=== PATIENT | female | born 1990 | race Caucasian/White ===

== ENCOUNTER 2024-10-05 18:13 | Emergency (ER) | payer BC, SELFPAY ==
--- NOTE | ~2024-10-05 | CT_ITS ---
CT abdomen pelvis w con Ordering provider: Irene Deleon PA-C History: 34 years Female with . RLQ abd pain, N/V, fevers . Comparison: None. Technique: CT abdomen and pelvis with IV and without oral contrast. Automated exposure control and it erative reconstruction technique were employed. The dose-length product was 1194.62 mGy-cm. 100 mL Om nipaque 350 was given IV. Findings: VISUALIZED LOWER CHEST: Dependent atelectatic changes. UPPER ABDOMINAL ORGANS: Liver: Hepatomegaly. Measuring 23 cm. Gallbladder: Normal. Spleen: Normal. Stomach/duodenum: Normal. Pancreas: Normal. Adrenals: Normal. Kidneys: Normal. Cyst in the right kidney upper pole. PELVIC ORGANS: The bladder is normal. BOWEL AND MESENTERY: Colon: No evidence of diverticulitis. Fecal material is loaded in the colon. Appendix is not demonstr ated. Small Bowel: Normal. No obstruction. Peritoneum/mesentery: No free air or free fluid. No mesenteric lymphadenopathy. RETROPERITONEUM: Normal aorta. No retroperitoneal lymphadenopathy. MUSCULOSKELETAL: Superficial soft tissues: Fat containing moderate size umbilical hernia. The superficial soft tissues are normal. Bones: Normal spine. IMPRESSION: No evidence of appendicitis, diverticulitis or intestinal obstruction. Constipation. Fat-containing umbilical hernia. Hepatomegaly. Reviewed, dictated and finalized at location A. [employer]
[2024-10-05 18:25] VITALS: BP 133/80; PULSE 109; RESP 20; TEMP 37.3; O2SAT 100
[2024-10-05 18:44] LABS: BEDSIDEPREGUCG Negative (Negative)
[2024-10-05 18:50] LABS: Basophils Percent Auto 0.5 % (0.2-1.2); Eosinophils Absolute Auto 0.1 K/mm3 (0-0.3); Eosinophils Percent Auto 0.8 % (0-4.4); Hematocrit 39.9 % (37.0-47.0); Hemoglobin 12.5 g/dL (12.0-15.0); Immature Granulocyte Absolute 0.03 K/mm3 (0.00-0.031); Immature Granulocyte Percent A 0.4 % (0-0.5); Lymphocytes Absolute Auto 1.35 K/mm3 (0.9-3.2); Lymphocytes Percent Auto 15.8 % (18.3-44.2); Mean Corpuscular HGB Conc 31.3 g/dl (32-36); Mean Corpuscular Hemoglobin 22.8 pg (26-34); Mean Corpuscular Volume 72.8 fl (80-100); Mean Platelet Volume 9.5 fl (7.4-10.4); Monocytes Absolute Auto 0.2 K/mm3 (0.1-0.6); Monocytes Percent Auto 1.8 % (2.6-8.5); Neutrophils Absolute Auto 6.9 K/mm3 (1.3-6.7); Neutrophils Percent Auto 80.7 % (45.5-73.1); Platelet Count Result 223 k/mm3 (150-375); Red Blood Count 5.48 M/mm3 (4.2-5.4); Red Cell Distribution Width 14.7 % (11.5-14.5); White Blood Count 8.5 K/mm3 (4.5-10.0)
[2024-10-05 18:52] LABS: Add Urine Microscopic? YES; Appearance Urine Cloudy (Clear); Bacteria Urine 4+ /hpf; Bilirubin Urine Negative (Negative); Blood Urine 1+ (Negative); Color Urine Yellow (Yellow); Glucose Urine UA Negative (Negative); Ketones Urine Negative (Negative); Leukocyte Esterase Ur 2+ LEU/UL (Negative); Nitrate Urine Positive (Negative); Non Pathogenic Casts 0-2; Protein Urine 1+ mg/dL (Negative); Specific Grav Ur 1.017 (1.001-1.035); Squamous Epithelial Cell Urine Few /hpf (Few); WBC Urine 51-100 /hpf (0-3)
[2024-10-05 19:01] LABS: Alanine Aminotransferase 68 U/L (6-35); Albumin Level 4.6 g/dL (3.5-5.1); Alkaline Phosphatase 97 U/L (38-126); Anion Gap 8 mmol/L (4-12); Aspartate Amino Transferase 41 U/L (14-36); Blood Urea Nitrogen 9 mg/dL (7-17); Calcium 9.2 mg/dL (8.4-10.2); Carbon Dioxide 27 mmol/L (22-30); Chloride 101 mmol/L (98-107); Estimated CRCL calculation 123 ml/min; Estimated Glomerular Filt Rate > 60; Glucose 109 mg/dL (65-110); Lipase 81 U/L (23-300); Sodium 136 mmol/L (137-145)
--- NOTE | 2024-10-05 19:01 | ED_ITS ---
HPI - Abdominal Pain General Chief Complaint: Abdominal Pain Stated Complaint: Chills, RQ abdominal pain Time Seen by Provider: 10/05/24 18:28 Source: patient Mode of arrival: ambulatory Limitations: no limitations History of Present Illness HPI narrative: Patient is a 34 y/o female who presents to the ED with c/o R sided abd pain. Patient reports she began feeling ill on Tuesday night with chills, diaphoresis. She was seen at [facility], had negative viral swabs and was discharged home. Patient reports that night she began having pain throughout her right- sided abdomen, right lower abdomen, periumbilical region. Symptoms have since persisted. She has been taking Tylenol and ibuprofen for pain around the clock without improvement. Reports nausea, denies vomiting. Denies diarrhea, constipation. Denies urinary complaints. Has never had pain like this before. Denies family members with similar symptoms. Related Data Allergies Allergy/AdvReac Type Severity Reaction Status Date / Time No Known Allergies Allergy Verified 10/05/24 18:14 Review of Systems Review of Systems: All systems reviewed & are unremarkable except as noted in HPI. All systems reviewed & are unremarkable except as noted in HPI and below Exam Narrative: GENERAL: Mildly ill appearing, obese with BMI of 35.9, non-toxic, in mild acute distress. HEAD: Normocephalic, atraumatic. RESPIRATORY: Airway patent, respirations nonlabored. Clear to auscultation bilaterally, no rales, rhonchi, wheezing. CARDIOVASCULAR: Tachycardic with regular rhythm without murmurs, rubs, or gallops. ABDOMINAL: Soft, tenderness to palpation throughout right mid to lower abdomen, periumbilical region. Nondistended. Normoactive BS. MUSCULOSKELETAL: Moves all extremities. No gross deformities. SKIN: Warm, dry, normal color. NEURO: A&O X3. Speech clear. Cranial nerves II-XII grossly intact. No ataxic movements. PSYCHIATRIC: Appropriate mood and affect. Normal interaction. Course Vital Signs Vital signs: Vital Signs Temperature 99.2 F 10/05/24 18:25 Pulse Rate 109 H 10/05/24 18:25 Respiratory Rate 20 10/05/24 18:25 Blood Pressure 133/80 10/05/24 18:25 Pulse Oximetry 100 10/05/24 18:25 Oxygen Delivery Room Air 10/05/24 18:25 Temperature 99.2 F 10/05/24 18:25 Pulse Rate 92 10/05/24 21:33 Respiratory Rate 16 10/05/24 21:33 Blood Pressure 104/66 10/05/24 21:33 Pulse Oximetry 98 10/05/24 21:33 Oxygen Delivery Room Air 10/05/24 18:25 MDM - Abdominal Pain MDM Narrative Medical decision making narrative: Patient presents to ED with 2-3 days of right-sided abdominal pain, chills, nausea. Patient tachycardic and borderline febrile upon arrival. Mildly uncomfortable appearing, but in NAD. CBC without leukocytosis or anemia. CMP is unremarkable. Minimal transaminitis noted. Normal bilirubin. Normal lipase. UA consistent with infection. Sent for culture. Given dose of Rocephin in the ED. Will treat as this is is likely contributing to lower abdominal pain. Viral swabs negative. CT scan of abdomen/pelvis showing constipation, no evidence of appendicitis or diverticulitis. No other significant abnormalities. Patient updated on lab and imaging results. She is feeling improved with supportive therapy. Feel she is safe for d/c home with close outpatient follow up. Will discharge on Keflex for UTI, zofran, bentyl. Also discussed additional constipation management at home. Recommended close f/u with PCP for further evaluation. Given strict return precautions. Patient agrees w/ plan. D/C in stable condition. VSS at time of d/c. Medical Records Attestation: I reviewed the patient's medical records. Lab Data Attestation: I reviewed the patient's lab results. 10/05/24 18:40 10/05/24 18:40 Labs: Lab Results 10/05/24 10/05/24 10/05/24 Range/Units 18:40 18:42 19:45 WBC 8.5 (4.5-10.0) K/mm3 RBC 5.48 H (4.2-5.4) M/mm3 Hgb 12.5 (12.0-15.0) g/dL Hct 39.9 (37.0-47.0) % MCV 72.8 L (80-100) fl MCH 22.8 L (26-34) pg MCHC 31.3 L (32-36) g/dl RDW 14.7 H (11.5-14.5) % Plt Count 223 (150-375) k/mm3 MPV 9.5 (7.4-10.4) fl Immature Gran % (Auto) 0.4 (0-0.5) % Neut % (Auto) 80.7 H (45.5-73.1) % Lymph % (Auto) 15.8 L (18.3-44.2) % [place] % (Auto) 1.8 L (2.6-8.5) % Eos % (Auto) 0.8 (0-4.4) % Baso % (Auto) 0.5 (0.2-1.2) % Lymph # (Auto) 1.35 (0.9-3.2) K/mm3 [place] # (Auto) 0.2 (0.1-0.6) K/mm3 Eos # (Auto) 0.1 (0-0.3) K/mm3 Baso # (Auto) 0.0 (0.0-0.1) K/mm3 Abs Immat Gran (auto) 0.03 (0.00-0.031) K/mm3 Absolute Neuts (auto) 6.9 H (1.3-6.7) K/mm3 Absolute Nucleated RBC 0.000 (0.0-0.012) K/mm3 Nucleated RBC % 0.0 (0.0-0.2) % Platelet Estimate Adequate (Adequate) Anisocytosis 1+ Ovalocytes 1+ Schistocytes None seen Sodium 136 L (137-145) mmol/L Potassium 4.0 (3.4-5.0) mmol/L Chloride 101 (98-107) mmol/L Carbon Dioxide 27 (22-30) mmol/L Anion Gap 8 (4-12) mmol/L BUN 9 (7-17) mg/dL Creatinine 0.70 (0.7-1.0) mg/dL Estim Creat Clear Calc 123 ml/min Estimated GFR > 60 (59 - ) Glucose 109 (65-110) mg/dL Lactic Acid 1.2 (0.7-2.0) mmol/L Calcium 9.2 (8.4-10.2) mg/dL Total Bilirubin 1.0 (0.2-1.3) mg/dL AST 41 H (14-36) U/L ALT 68 H (6-35) U/L Alkaline Phosphatase 97 (38-126) U/L Total Protein 9.0 H (6.3-8.2) g/dL Albumin 4.6 (3.5-5.1) g/dL Lipase 81 (23-300) U/L Urine Color Yellow (Yellow) Urine Appearance Cloudy H (Clear) Urine pH 6.0 (5.0-9.0) Ur Specific [place] 1.017 (1.001-1.035) Urine Protein 1+ H (Negative) mg/dL Urine Glucose (UA) Negative (Negative) mg/dL Urine Ketones Negative (Negative) mg/dL Ur Blood (Man) 1+ H (Negative) Urine Nitrate Positive H (Negative) Urine Bilirubin Negative (Negative) Urine Urobilinogen 1.0 (<2.0) mg/dL Leukocyte Esterase Rfl 2+ H (Negative) MATIAS/UL Urine RBC 11-20 H (0-2) /hpf Urine WBC 51-100 H (0-3) /hpf Ur Squamous Epith Cells Few (Few) /hpf Urine Bacteria 4+ H /hpf Urine Casts 0-2 POC Urine HCG, Qual Negative (Negative) Influenza A (RT-PCR) Negative (Negative) Influenza B (RT-PCR) Negative (Negative) RSV (RT-PCR) Negative (Negative) SARS-CoV-2 RNA (RT-PCR) Negative (Negative) Imaging Data Attestation: I personally reviewed and interpreted this imaging study as follows: Radiologist's impression: ITS Impressions Abdomen/Pelvis CT 10/05/24 20:06 IMPRESSION: No evidence of appendicitis, diverticulitis or intestinal obstruction. Constipation. Fat-containing umbilical hernia. Hepatomegaly. Discharge Plan Discharge Clinical Impression: Right sided abdominal pain UTI (urinary tract infection) Qualifiers: Urinary tract infection type: acute cystitis Hematuria presence: with hematuria Qualified Code(s): N30.01 - Acute cystitis with hematuria Constipation Qualifiers: Constipation type: unspecified constipation type Qualified Code(s): K59.00 - Constipation, unspecified Patient Disposition: Home, Self-Care Condition: Stable Instructions: Antibiotic Form, Constipation (ED), Urinary Tract Infection in Women (ED), High Fiber Diet (ED) Additional Instructions: Take antibiotics as prescribed for urinary tract infection. Continue Tylenol, ibuprofen, Bentyl as needed for abdominal discomfort. Utilize Zofran as needed for further nausea. Recommend high-fiber diet, drinking plenty of fluids. You may use MiraLax and/or Dulcolax up to twice daily over the next 1 week as needed for constipation. Follow-up with your primary care doctor for further evaluation. Return to the ED if you experience worsening or severe symptoms, unable to keep down food or drink, persistent fevers, severe constipation, rectal bleeding, or any other sy mptoms of concern. Prescriptions: New cephalexin 500 mg capsule 500 mg PO Q6H 7 Days Qty: 28 0RF dicyclomine 20 mg tablet 20 mg PO TID PRN (Reason: Abdominal Discomfort) Qty: 15 0RF ondansetron 4 mg tablet,disintegrating 4 mg PO Q8H PRN (Reason: nausea and vomiting) Qty: 15 0RF Follow-up/Referrals: Vince,Kevin Cherry MD [Primary Care Provider] - Time of Disposition: 21:10
[2024-10-05] MEDS: SODIUM CHLORIDE 0.9% IV 1,000 ML 999 ML IV CONT (19:03)
[2024-10-05] MEDS: MORPHINE SULFATE (*CRX) 4 MG/ML INJ IV PUSH (19:04)
[2024-10-05] MEDS: ONDANSETRON INJ 4 MG/2 ML VIAL IV PUSH (19:04)
[2024-10-05 19:10] LABS: Anisocytosis 1+; Ovalocytes 1+; Platelet Estimate Adequate (Adequate); Schistocytes None Seen
[2024-10-05 19:29] LABS: Influenza A QL RT-PCR Negative (Negative); Influenza B QL RT-PCR Negative (Negative); RSV RNA, RT-PCR Negative (Negative); SARS-CoV-2 RNA PCR Negative (Negative)
[2024-10-05 19:59] LABS: Lactic Acid Reflex 1.2 mmol/L (0.7-2.0)
[2024-10-05 20:09] VITALS: BP 117/71; PULSE 101; RESP 14; O2SAT 100
[2024-10-05] MEDS: KETOROLAC 30 MG/ML VIAL (*BKC) IV PUSH (21:23)
[2024-10-05] MEDS: DICYCLOMINE HCL 10 MG CAPSULE 20 MG PO (21:24)
[2024-10-05 21:33] VITALS: BP 104/66; PULSE 92; RESP 16; O2SAT 98
== END 2024-10-05 21:33 | disposition home or self-care (01) ==
PROVIDERS: Emergency Provider Physician Assistant; PCP Family Medicine
DX: R10.31 Right lower quadrant pain (principal); N30.01 Acute cystitis with hematuria; K59.00 Constipation, unspecified; Z20.822 Contact with and (suspected) exposure to COVID-19
CPT/HCPCS: 36415; 74177; 80053; 81001; 81025; 83605; 83690; 85025; 87077; 87086; 87186; 87637; 96365; 96375; 99284; A9270; J0696; J1885; J2270; J2405; J7030; Q9967